=== PATIENT | female | born 1955 | race Caucasian/White ===

== ENCOUNTER 2018-08-08 12:19 | Emergency (ER) | payer OTHER ==
[~2018-08-08] VITALS: Ht 149.9 cm; Wt 56.7 kg
[~2018-08-08 12:19] MED LIST: FLAGYL500 MG PO; GABAPENTIN400 MG PO; IMODIUM2 MG PO; INSULIN; LAC PO; LEVEMIR 3M100 UNITS/ SQ; OMEPRAZOLE40 MG PO; ONDN2V2 PO; PREDNISONE20 MG PO; PROPRANOLOL HCL10 MG PO; ULTRAM50 MG PO; Z.0.COZAAR50 MG PO; [UNRECOGNIZED DRUG - CODE] PO; [UNRECOGNIZED DRUG - OTHER] RC
--- OUTSIDE RECORDS SUMMARY | 2018-08-08 12:22 | XMS REPORT ---
Author Author [facility] Address Unknown Phone Unavailable Care Team Providers Care Massage Therapy Instructor Name Role Phone Unavailable Unavailable Payers Payer Name Policy Type Policy Number Effective Date Expiration Date Problems This patient has no known problems. Allergies, Adverse Reactions, Alerts Allergy Name Allergy Type Status Severity Reaction(s) Onset Date Inactive Date Treating Clinician Comments No Known Allergies DA Active U 2018-06-22 00:00:00 No Known Allergies DA Active U 2016-10-03 00:00:00 Medications This patient has no known medications. Results Test Description Test Time Test Comments Text Results Atomic Results Result Comments BASIC METABOLIC PANEL 2018 01:28:00 SODIUM (test code=NA) 139 mmol/L 136-145 POTASSIUM (test code=K) 4.6 mmol/L 3.5-5.1 CHLORIDE (test code=CL) 113.0 mmol/L 98-107 CARBON DIOXIDE (test code=CO2) 20.0 mmol/L 21-32 ANION GAP (test code=GAP) 10.6 10-20 GLUCOSE (test code=GLU) 165 mg/dL 74-106 BLOOD UREA NITROGEN (test code=BUN) 26 mg/dL 7-18 GLOMERULAR FILTRATION RATE (test code=GFR) 35 mL/min >=60 Estimated GFR by using Modified MDRD formula.Chronic kidney disease is defined as either kidney damageor GFR <60 mL/min/1.73 m2 for >3 months. CREATININE (test code=CREAT) 1.50 mg/dL 0.55-1.02 Note change in reference range due to change in reagent. BUN/CREATININE RATIO (test code=BUN/CREA) 17.8 10-20 CALCIUM (test code=CA) 7.1 mg/dL 8.5-10.1 [id number] 01:28:00* Test Item Value Reference Range Comments TROPONIN-I (test code=TROPI) <0.015 ng/mL 0-0.045 BASIC METABOLIC [id number] 01:08:00* Test Item Value Reference Range Comments SODIUM (test code=NA) 139 mmol/L 136-145 POTASSIUM (test code=K) 4.6 mmol/L 3.5-5.1 CHLORIDE (test code=CL) 113.0 mmol/L 98-107 CARBON DIOXIDE (test code=CO2) mmol/L 21-32 ANION GAP (test code=GAP) 10-20 GLUCOSE (test code=GLU) mg/dL 74-106 BLOOD UREA NITROGEN (test code=BUN) mg/dL 7-18 GLOMERULAR FILTRATION RATE (test code=GFR) mL/min >=60 CREATININE (test code=CREAT) mg/dL 0.55-1.02 BUN/CREATININE RATIO (test code=BUN/CREA) 10-20 CALCIUM (test code=CA) mg/dL 8.5-10.1 [id number] 01:08:00* Test Item Value Reference Range Comments TROPONIN-I (test code=TROPI) ng/mL 0-0.045 - CT ABD PELVIS W/O [id number] 23:30:00 Name: SHIRLEY SALAZAR [facility] : 1955 Age/S: 62 / F [address] [facility] Unit #: [id number] Loc: [place] [address] Phys: Bar Barbosa MD Acct: [id number] Dis Date: Status: REG ER PHONE #: [phone] Exam Date: 06/22/20182 FAX #: [phone] Reason: flank pain L radiating to LLQ EXAMS: CPT CODE: [id number] CT ABD PELVIS W/O CONT [id number] EXAM: - CT ABD PELVIS W/O CONT HISTORY: Left-sided pain. TECHNIQUE: Axial tomograms through the abdomen and pelvis were obtained without intravenous contrast. Coronal and sagittal reformatted images are provided. This exam was performed according to our departmental dose-optimization program, which includes automated exposure control, adjustment of the mA and/or kV according to patient size and/or use of iterative reconstruction technique. COMPARISON: None available time of interpretation. FINDINGS: The visualized lung bases are clear. Status post cholecystectomy. Small hiatal hernia. The liver, spleen, pancreas, adrenal glands and kidneys demonstrate no significant abnormalities. There is no renal calculi or hydronephrosis. The appendix has a normal appearance. The bowel is unremarkable. Colon diverticulosis with no evid ence of acute inflammation. There is no adenopathy or free fluid. Th e osseous structures demonstrate degenerative change without focal lesion. There is calcified plaque involving the abdominal aorta. Evaluation of the uterus limited in this noncontrast exam. IMPRESSION: Small hiatal hernia. No renal calculi or hydronephrosis. Status post cholecystectomy. Atherosclerosis. Evaluation of the aortic lumen is limited on this noncontrast exam. Multiple chronic findings as mentioned above. Electronically Si gned by Franklin Mora MD on 06/22/2018 at 2330 Reported and signed by: Franklin Mora MD PAGE 1 Signed Repo rt (CONTINUED) Name: SHIRLEY SLAAZAR [facility] : 1955 Age/S: 62 / F [address] [facility] Unit #: [id number] Loc: [place] 7 [address] Phys: Bar Barbosa MD Acct: [id number] Dis Date: Status: REG ER PHONE #: [phone] Exam Date: 06/22/2018 4140 FAX #: [phone] Reason: flank pain L radiating to LLQ EXAMS: CPT CODE: [id number] CT ABD PELVIS W/O CONT [id number] <Continued> CC: Braulio Beasley; Bar Barbosa MD Technologist:BUCK VINCENT RT CTDI: DLP: Trnscb Date/Time: 06/22/2018 (2330) [email or web address] Orig Print D/T: S: 06/22/2018 (2333) CTDI: DLP: PAGE 2 Signed Report URINALYSIS [id number] 22:50:00* Test Item Value Reference Range Comments UA COLOR (test code=COLU) STRAW YELLOW UA APPEARANCE (test code=APPU) CLEAR CLEAR UA GLUCOSE DIPSTICK (test code=DGLUU) 50 (Trace) mg/dL NEGATIVE UA BILIRUBIN DIPSTICK (test code=BILU) NEGATIVE mg/dL NEGATIVE UA KETONE DIPSTICK (test code=KETU) Negative mg/dL NEGATIVE UA SPECIFIC GRAVITY (test code=SGU) 1.012 1.001-1.035 UA BLOOD DIPSTICK (test code=ABDOUL) 1+ (Small) NEGATIVE UA PH DIPSTICK (test code=GENIA) 5.0 5.0-8.0 UA PROTEIN DIPSTICK (test code=PROU) 100 (2+) mg/dL NEGATIVE UA UROBILINIOGEN DIPSTICK (test code=URO) NEGATIVE mg/dL NEGATIVE UA NITRITE DIPSTICK (test code=SUNNY) NEGATIVE NEGATIVE UA LEUKOCYTE ESTERASE W REFLEX (test code=LEUUR) NEGATIVE NEGATIVE UA WBC (test code=WBCU) 0-5 #/HPF 0-5 UA RBC (test code=RBCU) 0-2 #/HPF 0-5 UA EPITHELIAL CELLS (test code=EPIU) FEW per HPF FEW UA BACTERIA (test code=BACU) NONE SEEN #/HPF NONE UA MUCUS (test code=MUCU) FEW #/LPF FEW Urine Source? Clean CatchBASIC METABOLIC [id number] 21:59:00* Test Item Value Reference Range Comments SODIUM (test code=NA) 137 mmol/L 136-145 POTASSIUM (test code=K) 5.3 mmol/L 3.5-5.1 CHLORIDE (test code=CL) 108.0 mmol/L 98-107 CARBON DIOXIDE (test code=CO2) 17.0 mmol/L 21-32 ANION GAP (test code=GAP) 17.3 10-20 GLUCOSE (test code=GLU) 158 mg/dL 74-106 BLOOD UREA NITROGEN (test code=BUN) 28 mg/dL 7-18 GLOMERULAR FILTRATION RATE (test code=GFR) 31 mL/min >=60 Estimated GFR by using Modified MDRD formula.Chronic kidney disease is defined as either kidney damageor GFR <60 mL/min/1.73 m2 for >3 months. CREATININE (test code=CREAT) 1.70 mg/dL 0.55-1.02 Note change in reference range due to change in reagent. BUN/CREATININE RATIO (test code=BUN/CREA) 16.5 10-20 CALCIUM (test code=CA) 8.1 mg/dL 8.5-10.1 HEPATIC FUNCTION [id number] 21:59:00* Test Item Value Reference Range Comments TOTAL PROTEIN (test code=PROT) 7.4 gram/dL 6.4-8.2 ALBUMIN (test code=ALB) 3.1 g/dL 3.4-5.0 GLOBULIN (test code=GLOB) 4.3 gram/dL 2.7-4.2 ALBUMIN/GLOBULIN RATIO (test code=A/G) 0.7 0.75-1.50 BILIRUBIN TOTAL (test code=BILT) 0.30 mg/dL 0.0-1.0 BILIRUBIN DIRECT (test code=BILD) 0.05 mg/dL 0.0-0.20 SGOT/AST (test code=AST) 18 IUnit/L 15-37 SGPT/ALT (test code=ALT) 17 IUnit/L 12-78 ALKALINE PHOSPHATASE TOTAL (test code=ALKP) 126 IUnit/L 45-117 Note change in reference range due to change in reagent. [id number] 21:59:00* Test Item Value Reference Range Comments LIPASE (test code=LIP) 67 U/L 73.0-393.0 [id number] 21:59:00* Test Item Value Reference Range Comments TROPONIN-I (test code=TROPI) <0.015 ng/mL 0-0.045 BASIC METABOLIC [id number] 21:23:00* Test Item Value Reference Range Comments SODIUM (test code=NA) 137 mmol/L 136-145 POTASSIUM (test code=K) 5.3 mmol/L 3.5-5.1 CHLORIDE (test code=CL) 108.0 mmol/L 98-107 CARBON DIOXIDE (test code=CO2) 17.0 mmol/L 21-32 ANION GAP (test code=GAP) 17.3 10-20 GLUCOSE (test code=GLU) 158 mg/dL 74-106 BLOOD UREA NITROGEN (test code=BUN) 28 mg/dL 7-18 GLOMERULAR FILTRATION RATE (test code=GFR) 31 mL/min >=60 Estimated GFR by using Modified MDRD formula.Chronic kidney disease is defined as either kidney damageor GFR <60 mL/min/1.73 m2 for >3 months. CREATININE (test code=CREAT) 1.70 mg/dL 0.55-1.02 Note change in reference range due to change in reagent. BUN/CREATININE RATIO (test code=BUN/CREA) 16.5 10-20 CALCIUM (test code=CA) 8.1 mg/dL 8.5-10.1 HEPATIC FUNCTION [id number] 21:23:00* Test Item Value Reference Range Comments TOTAL PROTEIN (test code=PROT) 7.4 gram/dL 6.4-8.2 ALBUMIN (test code=ALB) 3.1 g/dL 3.4-5.0 GLOBULIN (test code=GLOB) 4.3 gram/dL 2.7-4.2 ALBUMIN/GLOBULIN RATIO (test code=A/G) 0.7 0.75-1.50 BILIRUBIN TOTAL (test code=BILT) 0.30 mg/dL 0.0-1.0 BILIRUBIN DIRECT (test code=BILD) 0.05 mg/dL 0.0-0.20 SGOT/AST (test code=AST) IUnit/L 15-37 SGPT/ALT (test code=ALT) IUnit/L 12-78 ALKALINE PHOSPHATASE TOTAL (test code=ALKP) 126 IUnit/L 45-117 Note change in reference range due to change in reagent. [id number] 21:23:00* Test Item Value Reference Range Comments LIPASE (test code=LIP) 67 U/L 73.0-393.0 [id number] 21:23:00* Test Item Value Reference Range Comments TROPONIN-I (test code=TROPI) <0.015 ng/mL 0-0.045 - XR CHEST 1 [id number] 21:14:00 FAX: Braulio Mohr MD [phone] [place]: B St: REG FAX: Bar Barbosa MD [phone] Name: SHIRLEY SALAZAR [facility] : 1955 Age/S: 62/F [address] Unit #: [id number] Loc: [place] [address] Phys: Bar Barbosa MD Acct: [id number] Dis Date: Status: REG ER PHONE #: [phone] Exam Date: 06/22/20182056 FAX #: [phone] Reason: cough EXAMS: CPT CODE: [id number] XR CHEST 1 V [id number] REASON FOR EXAM: cough EXAM ORDER DATE: 06/22/2018 8:39 PM Ordering M.Abel: Bar Barbosa MD PROCEDURE: - XR CHEST 1 V COMPARISON: FINDINGS: Portable AP frontal view of the chest obtained at 8:52 PM shows clear lungs without evidence of consolidation. There is no evidence of effusion. The heart size is within normal limits. Pulmonary vasculatures are unremarkable. IMPRESSION: No active disease. at 2113 Reported and signed by: Andrew Castellon M.D. CC: Braulio Beasley; Bar Barbosa MD Technologist: MARSHA SEGUNDO Trninrd Date/Time/By: 06/22/2018 (2113) : By: OskarVTL Orig Print D/T: S: 06/22/2018 (2116) PAGE 1 Signed Report BASIC METABOLIC [id number] 21:11:00* Test Item Value Reference Range Comments SODIUM (test code=NA) 137 mmol/L 136-145 POTASSIUM (test code=K) 5.3 mmol/L 3.5-5.1 CHLORIDE (test code=CL) 108.0 mmol/L 98-107 CARBON DIOXIDE (test code=CO2) mmol/L 21-32 ANION GAP (test code=GAP) 10-20 GLUCOSE (test code=GLU) mg/dL 74-106 BLOOD UREA NITROGEN (test code=BUN) mg/dL 7-18 GLOMERULAR FILTRATION RATE (test code=GFR) mL/min >=60 CREATININE (test code=CREAT) mg/dL 0.55-1.02 BUN/CREATININE RATIO (test code=BUN/CREA) 10-20 CALCIUM (test code=CA) mg/dL 8.5-10.1 HEPATIC FUNCTION [id number] 21:11:00* Test Item Value Reference Range Comments TOTAL PROTEIN (test code=PROT) gram/dL 6.4-8.2 ALBUMIN (test code=ALB) g/dL 3.4-5.0 GLOBULIN (test code=GLOB) gram/dL 2.7-4.2 ALBUMIN/GLOBULIN RATIO (test code=A/G) 0.75-1.50 BILIRUBIN TOTAL (test code=BILT) mg/dL 0.0-1.0 BILIRUBIN DIRECT (test code=BILD) mg/dL 0.0-0.20 SGOT/AST (test code=AST) IUnit/L 15-37 SGPT/ALT (test code=ALT) IUnit/L 12-78 ALKALINE PHOSPHATASE TOTAL (test code=ALKP) IUnit/L 45-117 [id number] 21:11:00* Test Item Value Reference Range Comments LIPASE (test code=LIP) U/L 73.0-393.0 [id number] 21:11:00* Test Item Value Reference Range Comments TROPONIN-I (test code=TROPI) ng/mL 0-0.045 CBC W/O [id number] 21:10:00* Test Item Value Reference Range Comments WHITE BLOOD CELL (test code=WBC) 8.5 K/mm3 4.5-12.5 RED BLOOD CELL (test code=RBC) 3.54 mill/mm3 3.7-5.2 HEMOGLOBIN (test code=HGB) 10.3 gram/dL 11.5-15.5 HEMATOCRIT (test code=HCT) 31.8 % 36.0-46.0 MEAN CELL VOLUME (test code=MCV) 89.8 fL 80-98 MEAN CELL HGB (test code=MCH) 29.1 picogram 27.0-33.0 MEAN CELL HGB CONCETRATION (test code=MCHC) 32.4 gram/dL 33.0-36.0 RED CELL DISTRIBUTION WIDTH (test code=RDW) 14.0 % 11.6-16.2 PLATELET COUNT (test code=PLT) 242 K/mm3 150-450 MEAN PLATELET VOLUME (test code=MPV) 9.4 fL 6.7-11.0 - CT HEAD/BRAIN W/O [id number] 21:10:00 Name: SHIRLEY SALAZAR [facility] : 1955 Age/S: 62 / F [address] [facility] [id number] Loc: [place] [address] Phys: Bar Barbosa MD Acct: [id number] Dis Date: Status: REG ER PHONE #: [phone] Exam Date: 06/22/20182099 FAX #: [phone] Reason: dizzy vomiting GRIFFIN EXAMS: CPT CODE: [id number] CT HEAD/BRAIN W/O CONT [id number] REASON FOR EXAM: dizzy vomiting GRIFFIN EXAM ORDER DATE: 06/22/2018 8:39 PM Ordering M.Tatyana.: Bar Barbosa MD PROCEDURE: - CT HEAD/BRAIN W/O CONT COMPARISON: FINDINGS: CT images of the brain were obtained without IV contrast. Dose reduction techniques were applied. The brain parenchyma is within normal limits. The presley-white matter delineation is unremarkable. The ventricles, cisterns, and sulci are unremarkable. There is no evidence of hemorrhage, mass, mass effect. There is no evidence of acute or old infarct. The calvarium is intact. IMPRESSION: Unremarkable brain. at 2109 Reported an d signed by: Andrew Castellon M.D. CC: Braulio Beasley; Bar Barbosa MD Technologist:ABIDA FOX, RT(R) CT CTDI: DLP: Trnscb Date/Time: 06/22/2018 (2109) Yoseph Orig Print D/T: S: 06/22/2018 (2112) CTDI: DLP: PAGE 1 Signed Report D-DIMER 2018-06-22 21:08:00* Test Item Value Reference Range Comments D-DIMER (test code=DDIMER) 252.00 ng/mLFEU 0-500 Clinical Cut-off value for D- Dimer is 500 ng/mL FEU. Comment: The [employer] D-Dimer assay is intended for use asan aid in the diagnosis of venous thromboembolism (VTE)[deep vein thrombosis (DVT) or pulmonary embolism (PE)].The measurement of D-Dimer should not be used as an aid inthe diagnosis of VTE, in patient with: -Therapeutic dose anticoagulant therapy for >24 hours -Fibrinolytic therapy within previous 7 days -Trauma or surgery within previous 4 weeks -Disseminated malignancies - Aortic aneurysm -Sepsis, severe infections, pneumonia, severe skin infections -Liver cirrhosis -
[2018-08-08] MEDS ORDERED: ASPIRIN 81 MG CHEW TAB PO ONE (12:30)
[2018-08-08] MEDS ORDERED: TYLENOL # 31 EA PO (12:37)
[2018-08-08] MEDS ORDERED: GABAPENTIN300 MG PO (12:37)
[2018-08-08] MEDS ORDERED: IBUPROFEN600 MG PO (12:37)
[2018-08-08] MEDS ORDERED: LISINOPRIL2.5 MG PO (12:37)
[2018-08-08] MEDS ORDERED: CYCLOBENZAPRINE10 MG PO (12:37)
[2018-08-08 12:52] LABS: BASOPHILS % 0.4 % (0.0-1.0); EOSINOPHILS # (AUTO) 0.2 (0.0-0.4); EOSINOPHILS % 4.1 % (0.0-6.0); HEMATOCRIT 29.1 % (34.2-44.1); HEMOGLOBIN 9.7 g/dL (12.0-16.0); LYMPHOCYTES # (AUTO) 1.5 (1.0-3.2); LYMPHOCYTES % 30.3 % (18.0-39.1); MEAN CORPUSCULAR HGB CONC 33.3 g/dL (31-35); MEAN CORPUSCULAR VOLUME 87.1 fL (81-99); MONOCYTES # (AUTO) 0.4 (0.2-0.8); MONOCYTES % 7.4 % (4.4-11.3); NEUTROPHILS # (AUTO) 2.8 (2.1-6.9); NEUTROPHILS % 57.6 % (38.7-80.0); PLATELET COUNT 228 x10e3/uL (140-360); RED BLOOD COUNT 3.34 x10e6/uL (3.6-5.1); RED CELL DISTRIBUTION WIDTH 14.1 % (11.7-14.4)
[2018-08-08 13:05] LABS: ALBUMIN/GLOBULIN RATIO 0.8 (0.8-2.0); ANION GAP 15.4 mmol/L (8-16); CREATININE, SERUM 2.19 mg/dL (0.57-1.11); POTASSIUM 4.4 mmol/L (3.5-5.1)
[2018-08-08 13:13] LABS: INR 0.82; PROTHROMBIN TIME 11.8 seconds (11.9-14.5)
[2018-08-08 13:14] LABS: PARTIAL THROMBOPLASTIN TIME 29.6 seconds (23.8-35.5)
[2018-08-08 13:40] LABS: CLARITY,URINE CLEAR (CLEAR); COLOR,URINE YELLOW (YELLOW)
[2018-08-08 13:42] LABS: LEUKOCYTE ESTERASE ,URINE TRACE (NEGATIVE); NITRITE,URINE NEGATIVE (NEGATIVE)
[2018-08-08 13:43] LABS: BILIRUBIN,URINE NEGATIVE (NEGATIVE); KETONES,URINE NEGATIVE (NEGATIVE); PROTEIN,URINE DIPSTICK 3+ (NEGATIVE); URINE UROBILINOGEN 0.2 mg/dL (0.2 - 1)
[2018-08-08 13:45] LABS: BACTERIA,URINE MODERATE /HPF; EPITHELIAL CELLS,URINE MODERATE /LPF
--- NOTE | 2018-08-08 13:52 | Diagnostic Imaging Report ---
EXAMINATION: CHEST 2 VIEWS INDICATION: Chest pain. COMPARISON: None FINDINGS: TUBES and LINES: None. LUNGS: Lungs are well inflated. Lungs are clear. There is no evidence of pneumonia or pulmonary edema. PLEURA: No pleural effusion or pneumothorax. HEART AND MEDIASTINUM: The cardiomediastinal silhouette is unremarkable. BONES AND SOFT TISSUES: No acute osseous abnormality. UPPER ABDOMEN: No free air under the diaphragm. Status post cholecystectomy. IMPRESSION: No acute radiographic abnormality Signed by: Dr. Kaylee Liao MD on 08/08/2018 1:49 PM
[2018-08-08] MEDS ORDERED: SODIUM CHLORIDE 0.9% 1000ML 1,000 ML IV SCH (16:00)
--- NOTE | 2018-08-08 20:10 | Diagnostic Imaging Report ---
Ventilation/perfusion lung scan Clinical Information: Shortness of breath Comparison: Chest radiograph Discussion: Xenon-133 gas 14.7 mCi was administered via inhalation. Dynamic images of the lungs in the posterior projection were obtained through single breath, equilibrium, and washout phases. Distribution of tracer activity is irregular throughout the lungs. There are no segmental ventilatory defects. Washout of tracer is diffusely delayed with bibasilar air trapping. Perfusion images of the lungs were obtained in multiple projections following intravenous administration of approximately 7.7 mCi of Tc-99m MAA. Distribution of tracer is irregular throughout the lungs. The contours of the lungs are well demarcated. There are no segmental perfusion defects of any size. The cardiomediastinal silhouette is unremarkable. Impression: Scan findings represent a VERY LOW probability for acute pulmonary embolic disease based on the PIOPED II criteria. Scan evidence of obstructive lung disease. Signed by: Dr. Ace Lee M.D. on 08/08/2018 8:06 PM
[2018-08-08] MEDS ORDERED: HYDROCODONE/APAP 10MG-325MG TAB ONE (20:44)
[2018-08-08] MEDS ORDERED: HYDROCODONE/APAP 10MG-325MG TAB PO ONE (20:45)
[2018-08-08] MEDS ORDERED: CLONIDINE HCL 0.1 MG TAB PO ONE (20:45)
[2018-08-08] MEDS ORDERED: HYDROCODONE/APAP 10MG-325MG TAB PO NR (21:15)
== END 2018-08-08 21:49 | disposition home or self-care (01) ==
LOC: ER 12:19
DX: R07.89 Other chest pain (principal); N18.9 Chronic kidney disease, unspecified; I10 Essential (primary) hypertension; E11.9 Type 2 diabetes mellitus without complications; E78.5 Hyperlipidemia, unspecified
CPT/HCPCS: 36415; 71046; 78582; 80053; 81001; 82550; 82553; 83880; 84484; 85025; 85379; 85610; 85730; 93005; 99284; J7030